=== PATIENT | female | born 1940 | race Caucasian/White ===

== ENCOUNTER → 2016-08-06 | Outpatient (CLI) | payer MEDICARE ==
[~2016-08-06] MED LIST: ALAWAY10 ML OPHTH; BUSPIRONE HCL15 MG PO; CENTRUM MULTIG80 MCG PO; COZAAR25 MG PO; EVISTA60 MG PO; FLOVENT DISKUS50 MCG NOSE; GLUCOPHAGE500 MG PO; KLONOPIN0.5 MG PO; LAMICTAL200 MG PO; LIVALO2 MG PO; MOBIC7.5 MG PO; OXYGEN M-15 INH; PRESERVISION A1 EACH PO; PRISTIQ ER25 MG; PRISTIQ ER50 MG PO; PROTONIX40 MG PO; TYLENOL325 MG PO; VENLAFAXINE HCL50 MG PO; VITAMIN B-121000 MCG PO; ZANTAC (NON-FO150 MG PO; ZOLOFT100 MG PO
== END | disposition disaster alternative care site (69) ==
LOC: LGSMG 10:19
DX: E11.65 Type 2 diabetes mellitus with hyperglycemia (principal); I10 Essential (primary) hypertension; R68.89 Other general symptoms and signs

== ENCOUNTER → 2016-08-08 | Day surgery (SDC) | payer MEDICARE, OTHER ==
[~2016-08-08] VITALS: Ht 160 cm; Wt 64.3 kg
== END | disposition disaster alternative care site (69) ==
LOC: GPOC 08-07 15:00 → GEND 08:41 → GPOC 15:00
PROC: 0DB68ZX Excision of Stomach, Via Natural or Artificial Opening Endoscopic, Diagnostic (ICD-10-PCS; principal; 2016-08-08)
DX: K21.9 Gastro-esophageal reflux disease without esophagitis (principal); K31.89 Other diseases of stomach and duodenum; K44.9 Diaphragmatic hernia without obstruction or gangrene; G47.33 Obstructive sleep apnea (adult) (pediatric); I10 Essential (primary) hypertension; N17.9 Acute kidney failure, unspecified; Z79.899 Other long term (current) drug therapy; F31.9 Bipolar disorder, unspecified; E11.65 Type 2 diabetes mellitus with hyperglycemia; G47.00 Insomnia, unspecified; Z87.891 Personal history of nicotine dependence; Z98.890 Other specified postprocedural states
CPT/HCPCS: J2001; J7030

== ENCOUNTER → 2016-09-13 | Outpatient (CLI) | payer MEDICARE, OTHER | END | disposition disaster alternative care site (69) | LOC: GOPD 09-12 15:30 → GRAD 06:20 | DX: K86.2 Cyst of pancreas (principal); I51.7 Cardiomegaly | CPT/HCPCS: J7030 ==

== ENCOUNTER → 2016-12-20 | Outpatient (CLI) | payer MEDICARE, OTHER | LOC: GOPD 12-19 16:00 | DX: K57.32 Diverticulitis of large intestine without perforation or abscess without bleeding (principal); I10 Essential (primary) hypertension; K59.00 Constipation, unspecified; F32.9 Major depressive disorder, single episode, unspecified; E78.5 Hyperlipidemia, unspecified | CPT/HCPCS: J2001; J7030; Q9967 ==

== ENCOUNTER 2016-12-31 11:55 | Emergency (ER) | payer MEDICARE, OTHER ==
--- NOTE | ~2016-12-31 | ER ---
PATIENT'S NAME: ALIA YU [facility] AGE: 76 Y [address] ROOM: [place] [address] LOCATION: [facility] ADMIT DATE: 12/31/2016 ER/Outpatient Report DISCHARGE DATE: 12/31/2016 FAMILY PHYSICIAN: Betty Carrillo MD ATTENDING PHYSICIAN: Patti Solis Time of Arrival: 1155. Time Seen: 1210. IDENTIFICATION: 76-year-old female. CHIEF COMPLAINT: Abdominal burning sensation. HISTORY OF PRESENT ILLNESS: The patient is a 76-year-old female, who presents with some burning abdominal pain across her mid abdomen off and on for months. She has been treated for diverticulitis with antibiotics. The past month it sounds like Augmentin and then Cipro and Flagyl, but continued to have diarrhea off and on and two diarrhea stools today, which were dark, but not black. She contacted Dr. Carrillo, who advised her to come to the ER to "make sure I do not have a dying bowel." The patient rates her pain 4/10 burning sensation across her mid to low abdomen. She had the two loose stools today. She has had no nausea or vomiting. She has had no fever or chills. ALLERGIES: NO KNOWN DRUG ALLERGIES. CURRENT MEDICATIONS: 1. Metformin 500 mg daily. 2. Clonazepam 0.5 mg at bedtime. 3. Sertraline 100 mg b.i.d. 4. Pantoprazole 40 mg b.i.d. 5. Lamotrigine 200 mg at bedtime. 6. Buspirone 15 mg b.i.d. 7. Losartan 25 mg one-half tablet daily. 8. Livalo 2 mg daily. 9. Gabapentin 300 mg three times daily. 10. Raloxifene 60 mg daily. 11. Multivitamin daily. 12. Acetaminophen p.r.n. 13. Aleve p.r.n. MEDICAL PROBLEMS: PATIENT'S NAME: ALIA YU [facility] AGE: 76 Y [address] ROOM: [place], [place] [address] LOCATION: [facility] ADMIT DATE: 12/31/2016 ER/Outpatient Report DISCHARGE DATE: 12/31/2016 FAMILY PHYSICIAN: Betty Carrillo MD ATTENDING PHYSICIAN: Patti Solis Diabetes mellitus type 2, arthritis, diverticulitis, history of acute kidney injury, history of Booker esophagitis, bipolar disorder, constipation, depression, epigastric burning sensation, hiatal hernia with gastroesophageal reflux disease, headache, hyperlipidemia, insomnia, depression with anxiety, irritable bowel syndrome, neuroforaminal stenosis of the cervical spine, obstructive sleep apnea, osteoporosis, pancreatic cyst, palpitations, subconjunctival bleed, TMJ. PRIOR SURGERIES: Colonoscopy several years ago, EGD, and pacemaker. SOCIAL HISTORY: The patient lives here in [place]. She is . Tobacco use, denies. Alcohol use, denies. Drug use, denies. REVIEW OF SYSTEMS: All systems reviewed and negative other than what is noted in the HPI. C. diff was negative earlier this week per Dr. Carrillo. FAMILY HISTORY: Positive for diabetes mellitus. PHYSICAL EXAMINATION: VITAL SIGNS: Height 5 feet 3 inches, weight 63.2 kg. Blood pressure 145/75, pulse 78, respirations 16, temperature 96.2, and saturations 99% on room air. GENERAL: A 76-year-old female, in no acute distress. HEENT: Head: Normocephalic, atraumatic. Ears: TMs translucent to both ears. Eyes: Pupils equal and reactive to light and accommodation. Extraocular movements intact. Nose: Mucosa pink. No lesions or drainage. Mouth: No lesions. Pharynx benign. NECK: Supple. No lymphadenopathy. LUNGS: Clear to auscultation. HEART: Regular rate and rhythm. ABDOMEN: Soft, nondistended, minimally tender to palpation in the mid abdomen. No rebound or guarding. SKIN: [place], warm, and dry. No lesions or rashes noted. NEUROLOGIC: No focal deficit. No lower extremity edema. No calf tenderness. EMERGENCY DEPARTMENT COURSE: An IV was initiated. The patient was given 500 mL bolus of normal saline, then 150 mL/h for total of 750 mL infused. LABORATORY DATA AND IMAGING STUDIES: UA 10-20 white cells, 5-10 epithelial cells, otherwise negative. Procalcitonin less than 0.05. Sodium 142, potassium 3.8, chloride 109, CO2 of PATIENT'S NAME: ALIA YU [facility] AGE: 76 Y [address] ROOM: [place], [place] [address] LOCATION: ED ADMIT DATE: 12/31/2016 ER/Outpatient Report DISCHARGE DATE: 12/31/2016 FAMILY PHYSICIAN: Betty Carrillo MD ATTENDING PHYSICIAN: Patti Solis 25, BUN 20, creatinine 1.3. No recent creatinine available for comparison. Procalcitonin less than 0.05. Blood sugar 88, amylase 60, lipase 195, hemoglobin 12.7, hematocrit 37.8, platelets 212, white count 5.4, normal differential. INR of 1.02. Rectal exam normal. Sphincter tone; dark stool, but not black, heme positive, and lactate 1.4. CT abdomen and pelvis with IV contrast after fluid bolus, no acute findings. No inflammatory changes. She has diverticulosis, but no evidence of diverticulitis, and this is improved from CAT scan dated December 20, which did show some wall thickening of the sigmoid colon reflecting changes of diverticulitis. IMPRESSION AND PLAN: 1. Diverticulitis, resolved. 2. Burning mid abdominal pain. We will continue her Protonix and placed her on Carafate 1 g q.i.d. and follow up this week with Dr. Carrillo. Dr. Carrillo was notified and agreed with this plan of care. 3. Acute kidney injury. The patient did receive a fluid bolus here in the emergency room prior to her CT scan. She will be notified to hold her metformin for 48 hours and follow up for recheck of her creatinine with Dr. Carrillo. 4. Heme-positive stools. Dr. Carrillo will schedule the patient for a colonoscopy. 5. Hypertension. 6. Pyuria. 7. White blood cells in her urine. Urine culture is pending at this time. She also has epithelial cells and no symptoms of urinary tract infection, so cultures pending at this time. PATTI SOLIS MD CAR/modl /[id number] d: 12/31/162212 t: 08/30/17 2040, OUTPATIENT REPORT
[~2016-12-31 11:55] MED LIST changes: -ALAWAY10 ML OPHTH; -FLOVENT DISKUS50 MCG NOSE; -OXYGEN M-15 INH; -PRISTIQ ER50 MG PO; -VITAMIN B-121000 MCG PO
[2016-12-31 12:41] LABS: BASOPHIL % 0.7 %; EOSINOPHIL # 0.1 K/uL (0.0-0.5); EOSINOPHIL % 2.2 %; HEMATOCRIT 37.8 % (33.0-46.0); HEMOGLOBIN 12.7 g/dL (10.0-15.0); IMMATURE GRANULOCYTE % 0.6 %; LYMPHOCYTE # 0.8 K/uL (0.8-4.0); LYMPHOCYTE % 14.6 %; MCHC 33.6 gm/dL (32.0-36.5); MCV 92.2 fl (83.0-98.0); MONOCYTE # 0.5 K/uL (0.0-1.0); MONOCYTE % 8.9 %; MPV 9.2 fl (9.4-12.4); NRBC % 0 /100WBC (0-0.00); PLATELET COUNT 212 K/uL (150-450); RDW-CV 12.4 % (11.9-14.6); WBC 5.4 K/uL (4.0-11.0)
[2016-12-31 12:50] LABS: INR - (THERAPEUTIC) 1.02 (0.92-1.07); PROTIME 10.7 SECONDS (9.8-11.4); PTT 22 SECONDS (25-32)
[2016-12-31 13:01] LABS: ANION GAP 11.8 (10.0-19.0); CALCIUM 8.9 mg/dL (8.5-10.5); CREATININE 1.3 mg/dL (0.5-1.1); POTASSIUM 3.8 mMol/L (3.7-5.1); TOTAL BILIRUBIN 0.6 mg/dL (0.0-1.5); TOTAL PROTEIN 6.8 g/dL (6.0-8.4)
[2016-12-31 14:38] LABS: BILIRUBIN URINE NEGATIVE (NEGATIVE); BLOOD URINE NEGATIVE /UL (NEGATIVE); COLOR URINE YELLOW (YELLOW); GLUCOSE URINE NEGATIVE (NEGATIVE); KETONE URINE NEGATIVE (NEGATIVE); LEUKOCYTES URINE 500 /UL (NEGATIVE); NITRITE URINE NEGATIVE (NEGATIVE); PROTEIN URINE NEGATIVE (NEGATIVE); TURBIDITY URINE 1+ (CLEAR); UROBILINOGEN URINE NORMAL (NORMAL)
[2016-12-31 14:44] LABS: RBC URINE NEGATIVE #/HPF (NEGATIVE)
[2016-12-31 14:45] LABS: BACTERIA URINE NEGATIVE (NEGATIVE); YEAST URINE FEW (NEGATIVE)
[2017-01-07] MEDS ORDERED: VITAMIN B-121000 MCG PO (13:48)
[2017-01-07] MEDS ORDERED: PRISTIQ ER50 MG PO (13:52)
[2017-01-07] MEDS ORDERED: FLOVENT DISKUS50 MCG NOSE (14:08)
[2017-01-07] MEDS ORDERED: ALAWAY10 ML OPHTH (14:15)
== END 2016-12-31 16:24 | disposition disaster alternative care site (69) ==
LOC: GMED 11:55
PROVIDERS: Family Medicine
DX: R10.9 Unspecified abdominal pain (principal); N17.9 Acute kidney failure, unspecified; I10 Essential (primary) hypertension; N39.0 Urinary tract infection, site not specified; R82.99 Other abnormal findings in urine; R19.5 Other fecal abnormalities; E11.9 Type 2 diabetes mellitus without complications; M19.90 Unspecified osteoarthritis, unspecified site; F31.9 Bipolar disorder, unspecified; K21.9 Gastro-esophageal reflux disease without esophagitis; E78.5 Hyperlipidemia, unspecified; F41.8 Other specified anxiety disorders; K58.9 Irritable bowel syndrome, unspecified; M81.0 Age-related osteoporosis without current pathological fracture; Z79.84 Long term (current) use of oral hypoglycemic drugs; Z79.899 Other long term (current) drug therapy; Z98.890 Other specified postprocedural states; Z95.0 Presence of cardiac pacemaker
CPT/HCPCS: J7030; Q9967

== ENCOUNTER 2017-01-16 08:48 | Day surgery (SDC) | payer MEDICARE, OTHER ==
[~2017-01-16] VITALS: Ht 160 cm
--- NOTE | ~2017-01-16 | HP ---
PATIENT'S NAME: ALIA YU [facility] AGE: 76 Y [address] ROOM: [place] [address] LOCATION: [facility] ADMIT DATE: 01/16/2017 History & Physical DISCHARGE DATE: 01/16/2017 FAMILY PHYSICIAN: Betty Carrillo MD ATTENDING PHYSICIAN: Beckie Encarnacion DATE OF SERVICE: 01/16/2017 This patient is here for a history of abdominal pain. She has a history of chronic diverticulosis. She was referred to us by Dr. Carrillo. Please refer to his H and P for more details. Past medical history significant for history of diarrhea. This patient was evaluated initially prior to surgery. No changes were found compared to the history and physical from the last exam done by Dr. Carrillo on December 19, 2016. MD YENY SEVILLA/fer /[id number] D: 1 T: HISTORY & PHYSICAL
[~2017-01-16 08:48] MED LIST changes: +ALAWAY10 ML OPHTH; +FLOVENT DISKUS50 MCG NOSE; +PRISTIQ ER50 MG PO; +VITAMIN B-121000 MCG PO
[2017-01-16] MEDS ORDERED: OXYGEN M-15 INH (09:08)
== END 2017-01-16 11:45 | disposition disaster alternative care site (69) ==
LOC: GEND 08:48
PROC: 0DJD8ZZ Inspection of Lower Intestinal Tract, Via Natural or Artificial Opening Endoscopic (ICD-10-PCS; principal; 2017-01-16)
DX: K64.8 Other hemorrhoids (principal); K57.30 Diverticulosis of large intestine without perforation or abscess without bleeding; K21.9 Gastro-esophageal reflux disease without esophagitis; F32.9 Major depressive disorder, single episode, unspecified; F41.9 Anxiety disorder, unspecified; I10 Essential (primary) hypertension; E78.00 Pure hypercholesterolemia, unspecified; E11.9 Type 2 diabetes mellitus without complications; M19.90 Unspecified osteoarthritis, unspecified site; Z98.890 Other specified postprocedural states; Z98.41 Cataract extraction status, right eye; Z98.42 Cataract extraction status, left eye
CPT/HCPCS: J2001; J7030